=== PATIENT | female | born 2000 | race Caucasian/White ===

== ENCOUNTER 2022-06-20 04:48 | Emergency (ER) | payer OTHER ==
[2022-06-20 06:06] LABS: BASOPHIL 0.3 % (0-2); HCT 41.1 % (37.0-47.0); HGB 14.3 g/dl (12.5-16.0); LYMPHOCYTE 35.6 % (15-48); MCH 30.7 pg (25.0-31.0); MCHC 34.8 g/dL (32.0-36.0); MCV 88.2 fL (78.0-100.0); MONOCYTE 8.2 % (0-12); MPV 11.2 fL (6.0-9.5); NEUTROPHIL 54.6 % (41-80); NRBC 0; PLT 198 K/uL (150-400); RBC 4.66 M/uL (4.20-5.40); RDW 12.2 % (11.5-14.0); WBC 12.8 K/uL (4.0-10.5)
[2022-06-20 06:13] LABS: ALBUMIN 3.7 g/dL (3.4-5.0); BILIRUBIN - TOTAL 0.4 mg/dL (0.2-1.0); BUN/CREAT RATIO (CALC) 17.1 RATIO; CREATININE 0.76 mg/dL (0.51-0.95); GLOBULIN (CALCULATION) 3.1 g/dL; POTASSIUM 3.2 mmol/L (3.5-5.1); TOTAL PROTEIN 6.8 g/dL (6.4-8.2)
[2022-06-20 06:20] LABS: BILIRUBIN NEGATIVE (NEGATIVE); BLOOD 3+ Ery/uL (NEGATIVE); CLARITY CLEAR (CLEAR); COLOR YELLOW (YELLOW); GLUCOSE (U) NORMAL (NORMAL); LEUKOCYTES NEGATIVE Leu/uL (NEGATIVE); NITRITE NEGATIVE (NEGATIVE); PROTEIN NEGATIVE (NEGATIVE); SPECIFIC GRAVITY >=1.030 (1.001-1.030); UROBILINOGEN 0.2 mg/dL (0.2-1.0)
[2022-06-20 06:51] LABS: BACTERIA 1+; URINARY WBC RARE
[2022-06-20 06:54] LABS: CORONAVIRUS 2019 SARS-COV-2 NEGATIVE (NEGATIVE); INFLUENZA A NAA NEGATIVE (NEGATIVE)
== END 2022-06-20 06:52 | disposition home or self-care (01) ==
LOC: FER 04:48
PROVIDERS: Internal Medicine
DX: N94.6 Dysmenorrhea, unspecified (principal); E87.6 Hypokalemia; Z20.822 Contact with and (suspected) exposure to COVID-19
CPT/HCPCS: 36415; 80053; 81001; 83690; 84145; 85025; J1885; U0002